=== PATIENT | male | born 1965 | race Two or more races ===

== ENCOUNTER 2021-11-24 10:49 | Emergency (ER) | payer SELFPAY ==
[~2021-11-24] VITALS: Ht 185.4 cm; Wt 88.0 kg
[2021-11-24] MEDS ORDERED: FAMOTIDINE 20MG/2ML VIAL IV STA (11:23)
[2021-11-24] MEDS ORDERED: MORPHINE SULFATE 4 MG/ML CPJ (NOT FOR IM USE) IV STA (11:23)
[2021-11-24] MEDS ORDERED: SODIUM CHLORIDE 0.9% 1,000 ML IV ONE (11:30)
[2021-11-24 11:47] LABS: BASOPHILS % 1.1 % (0.0-2.0); EOSINOPHILS % 0.8 % (0.0-5.0); HEMOGLOBIN. 16.5 g/dL (14.0-18.0); LYMPHOCYTES % 19.7 % (20.0-50.0); MEAN CORPUSCULAR HEMOGLOBIN 30.4 pg (28.0-32.0); MEAN CORPUSCULAR VOLUME 88.2 fL (80.0-94.0); MEAN PLATELET VOLUME 8.5 fl (7.4-10.4); MONOCYTES % 6.6 % (2.0-8.0); NEUTROPHILS % 71.8 % (40.0-76.0); PLATELET 284 x1000/uL (130-400); RED BLOOD CELL COUNT 5.44 mill/uL (4.7-6.1); RED CELL DISTRIBUTION WIDTH 13.2 % (11.6-14.6)
[2021-11-24 11:56] LABS: CHLORIDE 106 mEq/L (98-107); INR 1.1; PROTHROMBIN TIME 11.3 sec (9.6-11.0)
[2021-11-24] MEDS ORDERED: FAMO-135 MT (12:40)
[2021-11-24 13:23] VITALS: BP 145/78
== END 2021-11-24 13:32 | disposition home or self-care (01) ==
LOC: ER 12:24
DX: R10.9 Unspecified abdominal pain (principal); K21.9 Gastro-esophageal reflux disease without esophagitis; Z88.0 Allergy status to penicillin
CPT/HCPCS: 36415; 71045; 80053; 82270; 83690; 85025; 85610; 86850; 86900; 86901; 93005; 96361; 96374; 96375; 99285; J2270; J3490; J7030